=== PATIENT | male | born 1975 | race Caucasian/White ===

== ENCOUNTER 2017-08-31 08:44 | Day surgery (SDC) | payer OTHER, MEDICAID ==
[2017-08-31] MEDS ORDERED: LIDOCAINE 4% SOLUTION 50 ML BTL (10:04)
[2017-08-31] MEDS ORDERED: PROPOFOL 40 ML (10:11)
[2017-08-31] MEDS ORDERED: FENTAnyl 50 MCG/ML VIAL (10:11)
[2017-08-31] MEDS ORDERED: LIDOCAINE 100 MG SYRINGE (10:11)
== END 2017-08-31 15:08 | disposition home or self-care (01) ==
LOC: GIL 08:44
DX: K29.60 Other gastritis without bleeding (principal); E78.5 Hyperlipidemia, unspecified
CPT/HCPCS: 43239; 88305; 88312